=== PATIENT | female | born 1995 | race African-American/Black ===

== ENCOUNTER 2020-04-18 08:00 | Outpatient (CLI) | payer MEDICAID | END 2020-04-18 23:59 | disposition home or self-care (01) | LOC: LAB.R 08:00 | PROVIDERS: ATTEND Obstetrics & Gynecology | DX: O26.879 Cervical shortening, unspecified trimester (principal) | CPT/HCPCS: 82731 ==

== ENCOUNTER 2020-04-18 15:32 | Outpatient (CLI) | payer MEDICAID ==
[2020-04-18 15:49] VITALS: BP 121/67
[2020-04-18 17:21] LABS: HCT - HEMATOCRIT 27.8 % (37.0-47.0); HGB - HEMOGLOBIN 9.1 g/dL (12.0-16.0); MEAN CORPUSCULAR HEMOGLOBIN 27.7 pg (27.0-31.0); MEAN CORPUSCULAR HGB CONC 32.7 g/dL (32.0-36.0); MEAN CORPUSCULAR VOLUME 84.5 fL (81.0-99.0); MEAN PLATELET VOLUME 10.5 fL (7.9-10.8); RED BLOOD COUNT 3.29 10^6/uL (4.20-5.40); WHITE BLOOD COUNT 11.5 x10^3/uL (4.8-10.8)
[2020-04-18 17:23] LABS: BILIRUBIN,URINE NEGATIVE (NEGATIVE); GLUCOSE, URINE (UA) NEGATIVE (NEGATIVE); KETONES,URINE (UA) 40 mg/dL (NEGATIVE); LEUKOCYTE ESTERASE, URINE NEGATIVE (NEGATIVE); NITRITE,URINE NEGATIVE (NEGATIVE); OCCULT BLOOD,URINE NEGATIVE (NEGATIVE); PROTEIN,URINE NEGATIVE (NEGATIVE); UROBILINOGEN,URINE 0.2 (NORMAL) E.U./dL (NORMAL)
[2020-04-18 17:34] LABS: CLARITY,URINE CLEAR (CLEAR)
[2020-04-18] MEDS ORDERED: TETANUS/DIPHTHERIA/PERTUSSIS 0.5 ML SYRINGE IM ONE (17:40)
--- NOTE | 2020-04-18 18:09 | PROVIDER PROGRESS NOTE ---
- HPI Current : Current [facility] 06/01/20 Gestation 33 Weeks and 5 Days 2 Para 1 Vital Signs Temperature 99.0 F 04/18/20 15:47 Heart Rate 90 04/18/20 15:47 Respiratory Rate 18 04/18/20 15:47 Blood Pressure 121/67 04/18/20 15:47 O2 Saturation 100 04/18/20 15:47 Temperature 99.0 F 04/18/20 15:47 Heart Rate 90 04/18/20 15:47 Respiratory Rate 18 04/18/20 15:47 Blood Pressure 121/67 04/18/20 15:47 O2 Saturation 100 04/18/20 15:47 - Exam CC: sent from clinic due to short cervix on SVE HPI: [place]oved [place] and had a transfer of care visit today. Has felt pressure vaginally for >1mo and this has subtly increased with time as the baby has grown. No sudden increases in the sensation of pressure. No contractions, no VB, no LOF. Good FM. PMH: sickle cell trait (FOB is negative), genital HSV, hx uterine prolapse after last delivery improved with time (not a uterine inversion). PSH: neg SH: no t/e/d. SAHM. Allergies: NKDA Meds: PNV FH: noncontributory OB: : Uncomplicated , at 39w3d, 6#10oz. Different FOB who was 6'0" tall. G2: current, initial care in [place] transferred here with [employer] duty [employer] partner. --NOB labs not yet done due to cost --Normal genetic screen reported by pt but not available in records --s/p flu vax but not Tdap --Normal anatomy scan (face not initially cleared but was cleared on follow up US), normal fluid, post placenta --Cervical length 3.0cm at 20w and 2.5cm at 24w --Dating is an issue: LMP totally unknown to patient (per her report to me) although parts of [place] records document "certain" LMP and others document unknown. US 7w5d CRL on 10/27/19 --> OMA 06/09/2020. That US appears to have been done by a nurse practitioner. US 13w4d on 11/29/19 --> 06/01/2020. OMA was changed to 06/01 at that ultrasound. That US read by radiologist. US 20w1d and 20w4d both listed on US report on 01/17/20 --> 06/01/20 or 06/04/20 US 24w1d on 02/14/20 --> 06/04/20 O: AVSS SVE in clinic closed/1cm long/0 station Category 1 NST Dendron q3min 1h: 158 Hct 27.8, plts 269, Fe <5 UA normal, rub immune, blood A+ US here: Growth 12% using 7wUS dating 06/09. CL 2.0cm, LIZZY 13.6, S/D: mid 3.2, incidental BPP 12/22 A/P: 24yo likely at 33w5d by 13w US c/w 20 and 24w US--done by radiologist. This is 8d discordant from a 7w US but that was done by a nurse practitioner. LMP unknown. Normally we would use the earliest US to date but with the concordance of the 3 other ultrasounds and with the difference in expertise of the practitioners, Dr. Fabian and I have chosen to re-date. Final OMA per us is 06/01/19. Based on this, her EFW is much less than the 12%ile so we will dx her with IUGR today. Placenta is grade 2 which is c/w the IUGR diagnosis. NST and fluid are normal, incidental BPP 10/10. Will start biweekly surveillance. Borderline cervical length. CL was 2.5 at 24w and is 2.0cm today. FFN neg. Robbi q3min on the monitor but is not feeling these and she is very thin. Checked due to a sensation of vag pressure that has been chronic for more than 1 month without recent flare in symptoms. Iron deficiency anemic with Hct 27 and Fe <5. Pt with sickle cell trait as well. IV iron 1 dose here now due to severity. po Fe at home and recheck in 2w. Vax: due for Tdap given today. s/p flu vax at outside facility HSV history: valcyclovir prophylaxis start today due to borderline cervical length. Elevated 1h GTT 158: 3h GTT ordered - Procedures NST Procedure: NST Procedure Start Date 04/18/20 Start Time 15:49 Stop Time 16:15 Vibroacoustic Stimulation Used No Patient States Movement Yes
[2020-04-18 18:27] LABS: % IRON SATURATION 5 % (20-50); IRON 33 ug/dL (28-170); TOTAL IRON BINDING CAPACITY 605 ug/dL (250-450); TRANSFERRIN 432 mg/dL (192-382)
[2020-04-18] MEDS ORDERED: FERRIC GLUCONATE 125 MG in SODIUM CHLORIDE 0.9% 100ML 100 ML IV ONE (18:49)
--- NOTE | 2020-04-18 19:03 | Ultrasound Report ---
PROCEDURE: OB F/U or Repeat INDICATIONS: As required by radiologist OUTSIDE/PRIOR DATING DATA: Last menstrual period (LMP): Unknown. LMP-based estimated date of delivery (OMA): Unknown. First dating scan (date and location): 10/27/2019. Estimated date of delivery (OMA) from first dating scan: 06/09/2020. TECHNIQUE: Real-time scanning was performed of the fetus, with image documentation and biometric measurements. Endovaginal scanning: Performed COMPARISON: None. FINDINGS: General: A single living intrauterine gestation is present. Presentation: Vertex Placenta: Placental position is posterior fundal, without previa. Amniotic fluid index: 13.6 cm, 42nd percentile for gestational age. heart rate: 163 beats per minute. Maternal cervical canal: 2.0 cm long; normal length is 2.5 cm or more. biometrics: Biparietal diameter: 7.6 cm, 30 weeks 5 days Head circumference: 28.9 cm, 31 weeks 5 days Abdominal circumference: 27.6 cm, 31 weeks 4 days Femur length: 6 cm, 31 weeks 1 day Estimated gestational age from initial scan: 32 weeks 4 days. Composite gestational age from present scan: 31 weeks 2 days Estimated weight and percentile: 1763 g, 12th percentile Measurement variability in biometric dating: +/- 10 days from 12-20 weeks gestation, +/- 2 weeks from 20-30 weeks gestation, +/- 3 weeks at 30 weeks gestation or more. Umbilical cord Doppler: Systolic/diastolic ratio within normal limits. Other: Not applicable. IMPRESSION: 1. Single live intrauterine with size consistent with dates. 2. Cervix measures 2 cm in length on transvaginal imaging. No definite following is seen at the inte rnal cervical os. 3. Normal umbilical cord Doppler interrogation. Findings were conveyed to the referring provider, Dr. Jones, by the feedlot manager on 04/18/2020 at 6 :25 PM [facility]. Reviewed by: Riley Vega MD on 04/18/2020 6:02 PM [facility] Approved by: Riley Vega MD on 04/18/2020 6:02 PM [facility] Station ID: [id number]
--- NOTE | 2020-04-18 19:06 | Ultrasound Report ---
PROCEDURE: OB Transvaginal INDICATIONS: As required by radiologist OUTSIDE/PRIOR DATING DATA: Last menstrual period (LMP): Unknown. LMP-based estimated date of delivery (OMA): Unknown. First dating scan (date and location): 10/27/2019. Estimated date of delivery (OMA) from first dating scan: 06/09/2020. TECHNIQUE: Real-time scanning was performed of the fetus, with image documentation and biometric measurements. Endovaginal scanning: Performed. Images are present under the OB ultrasound exam performed at the [facility] time (accession [id number] ) COMPARISON: None. FINDINGS: General: A single living intrauterine gestation is present. Presentation: Vertex Placenta: Placental position is posterior fundal, without previa. Amniotic fluid index: 13.6 cm, 42nd percentile for gestational age. heart rate: 163 beats per minute. Maternal cervical canal: 2.0 cm long; normal length is 2.5 cm or more. biometrics: Biparietal diameter: 7.6 cm, 30 weeks 5 days Head circumference: 28.9 cm, 31 weeks 5 days Abdominal circumference: 27.6 cm, 31 weeks 4 days Femur length: 6 cm, 31 weeks 1 day Estimated gestational age from initial scan: 32 weeks 4 days. Composite gestational age from present scan: 31 weeks 2 days Estimated weight and percentile: 1763 g, 12th percentile Measurement variability in biometric dating: +/- 10 days from 12-20 weeks gestation, +/- 2 weeks from 20-30 weeks gestation, +/- 3 weeks at 30 weeks gestation or more. Umbilical cord Doppler: Systolic/diastolic ratio within normal limits. Other: Not applicable. IMPRESSION: 1. Single live intrauterine with size consistent with dates. 2. Cervix measures 2 cm in length on transvaginal imaging. No definite following is seen at the inte rnal cervical os. 3. Normal umbilical cord Doppler interrogation. Findings were conveyed to the referring provider, Dr. Jones, by the tow boat captain on 04/18/2020 at 6 :25 PM [facility] Reviewed by: Riley Vega MD on 04/18/2020 6:04 PM [facility] Approved by: Riley Vega MD on 04/18/2020 6:04 PM [facility] Station ID: [id number]
[2020-04-18 20:21] LABS: CHLAMYDIA TRACHOMATIS DNA NEGATIVE (NEGATIVE); NEISSERIA GONORRHOEAE DNA NEGATIVE (NEGATIVE); TRICHOMONAS VAGINALIS DNA NEGATIVE (NEGATIVE)
[2020-04-19 12:23] LABS: HEPATITIS B SURFACE ANTIGEN NON-REACTIVE (NON-REACTIVE); HEPATITIS C ANTIBODY NON-REACTIVE (NON-REACTIVE)
[2020-04-19 12:51] LABS: HIV AG/AB 4TH GEN NON-REACTIVE (NON-REACTIVE)
== END 2020-04-18 21:00 | disposition home or self-care (01) ==
LOC: WFO 15:32 → FBP 15:34 → WFO 21:00
PROVIDERS: ATTEND Obstetrics & Gynecology
DX: O36.5930 Maternal care for other known or suspected poor fetal growth, third trimester, not applicable or unspecified (principal); O26.873 Cervical shortening, third trimester; O99.013 Anemia complicating pregnancy, third trimester; D50.9 Iron deficiency anemia, unspecified; O98.513 Other viral diseases complicating pregnancy, third trimester; B00.9 Herpesviral infection, unspecified; O99.891 Other specified diseases and conditions complicating pregnancy; D57.3 Sickle-cell trait; Z3A.33 33 weeks gestation of pregnancy; O09.893 Supervision of other high risk pregnancies, third trimester
CPT/HCPCS: 76816; 76817; 81003; 82728; 82731; 82950; 83540; 84466; 85027; 86592; 86762; 86787; 86803; 86850; 86900; 86901; 87081; 87340; 87389; 87491; 87591; 87661; 90715; 96365; 96372; 99214; J2916; 81001; 81599; 87086; 87797

== ENCOUNTER 2020-04-20 18:02 | Outpatient (CLI) | payer MEDICAID ==
--- NOTE | 2020-04-21 13:17 | Ultrasound Report ---
PROCEDURE: OB Detailed Eval INDICATIONS: SUPERVISION OF HIGH RISK OUTSIDE/PRIOR DATING DATA: Last menstrual period (LMP): Unknown. LMP-based estimated date of delivery (OMA): Unknown. First dating scan (date and location): 10/27/2019 Estimated date of delivery (OMA) from first dating scan: 06/09/2020 TECHNIQUE: Real-time scanning was performed of the fetus, with image documentation and biometric measurements. Endovaginal scanning: Not done COMPARISON: 04/18/2020. FINDINGS: General: A single live intrauterine gestation is present. Presentation: Vertex Placenta: Placental position is posterior/fundal, without previa. Amniotic fluid index: 11.4 cm, 23rd percentile for gestational age. heart rate: 139 beats per minute. Maternal cervical canal: 2.2 cm long; normal length is 2.5 cm or more. biometrics: Biparietal diameter: 7.8 cm equals 31 weeks 4 days Head circumference: 29 cm equals 32 weeks 0 days Abdominal circumference: 27.1 cm equals 31 weeks 2 days Femur length: 6 cm equals 31 weeks 2 days Estimated gestational age from initial scan: 32 weeks 6 days Composite gestational age from present scan: 31 weeks 4 days Estimated weight and percentile: 1752 g, less than 2nd percentile Measurement variability in biometric dating: +/- 10 days from 12-20 weeks gestation, +/- 2 weeks from 20-30 weeks gestation, +/- 3 weeks at 30 weeks gestation or later. Anatomic survey: Neuro: Not imaged Face: Negative facial profile is not well seen. However, no abnormality can be seen. The nasal bone i s unremarkable. Spine: The cervical spine is not well seen, secondary to positioning. No spinal abnormality is identified on this study. Heart: 4-chambered heart is present, with normal ventricular outflow tracts. Diaphragm: Diaphragm is intact. Stomach: Left-sided stomach is present. Kidneys: No hydronephrosis. Normal is less than 5 mm in 2nd trimester, less than 7 mm in 3rd trimester. Cord: 3 vessel cord has orthotopic insertion. Bladder: Normal in size. Extremities: All 4 extremities are visualized. The hands are not well seen. Cord Doppler measurements are: Placenta: 4.1, 3.8 Mid cord: 3.2, 3.3 Cord insertion: 3.8, 3.6 IMPRESSION: Shortened cervix again seen, measuring 2.2 cm. Small size, less than 2nd percentile. The neurological structures, facial profile, cervical cord, and hands are not well seen. Reviewed by: Arvind Lutz MD on 04/21/2020 12:[address] [facility] Approved by: Arvind Lutz MD on 04/21/2020 12:[address] [facility] Station ID: [id number]
== END 2020-04-20 18:03 | disposition home or self-care (01) ==
LOC: DI 18:02
PROVIDERS: ATTEND Obstetrics & Gynecology
DX: O09.893 Supervision of other high risk pregnancies, third trimester (principal); O26.873 Cervical shortening, third trimester; O36.5930 Maternal care for other known or suspected poor fetal growth, third trimester, not applicable or unspecified; Z3A.00 Weeks of gestation of pregnancy not specified

== ENCOUNTER 2020-04-23 10:01 | Outpatient (CLI) | payer MEDICAID ==
--- NOTE | 2020-04-23 14:45 | PROCEDURE REPORT ---
- HPI Diagnosis/Indication for NST: Intrauterine growth restriction - Results and Plan Findings/Impression: Baseline 140 BPM Variability moderate Accelerations present Decelerations absent [place] irritable Assessment: IUGR; category 1 NST Plan: continue outpatient surveillance
--- NOTE | 2020-04-23 15:23 | Ultrasound Report ---
PROCEDURE: OB Biophysical Profile INDICATIONS: IUGR OUTSIDE/PRIOR DATING DATA: Last menstrual period (LMP): No. LMP-based estimated date of delivery (OMA): Unknown. First dating scan (date and location): [place] Estimated date of delivery (OMA) from first dating scan: 06/01/2020. TECHNIQUE: Real-time scanning was performed of the fetus, with image documentation and biometric mayra surements. Biophysical profile was also obtained. Endovaginal scanning: Not performed COMPARISON: 04/20/2020 and 04/18/2020. FINDINGS: General: A single living intrauterine gestation is present. Presentation: Vertex. Fetus is low within the uterus. Placenta: Placental position is posterior fundal, without previa. Amniotic fluid index: 11.2 cm, normal for gestational age. 21.6%. Largest pocket measures 3.3 cm. heart rate: 144 beats per minute. Maternal cervical canal: Cervical canal is very short in length and is closed, normal length is 2.5 c m or more. Estimated gestational age from initial scan: 34 weeks, 3 days. Biophysical profile: Tone: 2 points. Movement: 2 points. Respiration: 2 points. Largest pocket of fluid: 2 points. Umbilical artery Doppler: Placenta: 2.3, 2.6 Mid cord: 3.8, 4.0 Cord insertion: 3.8, 4.0. IMPRESSION: 1. Very short cervical canal which is not well seen on the current study and appears to be closed. 2. Normal amount of amniotic fluid. Largest pocket measures 3.3 cm. 3. Single live intrauterine with fetus in vertex presentation. Fetus is low within the uter us. 4. heart rate is 144 bpm. 5. biophysical profile score is 8 out of 8. 6. Normal umbilical cord artery SD ratio. Reviewed by: Syd Swartz MD on 04/23/2020 2:22 PM [facility] Approved by: Syd Swartz MD on 04/23/2020 2:22 PM [facility] Station ID: [id number]
== END 2020-04-23 10:02 | disposition home or self-care (01) ==
LOC: DI 10:01
PROVIDERS: ATTEND Obstetrics & Gynecology
DX: O99.810 Abnormal glucose complicating pregnancy (principal); O36.5930 Maternal care for other known or suspected poor fetal growth, third trimester, not applicable or unspecified; Z3A.34 34 weeks gestation of pregnancy
CPT/HCPCS: 36415; 82951; 82952

== ENCOUNTER 2020-04-23 12:53 | Outpatient (CLI) | payer MEDICAID ==
[2020-04-23 13:12] VITALS: BP 112/67
--- NOTE | 2020-04-30 07:28 | PROCEDURE REPORT ---
- HPI Current [facility] 06/01/20 Gestation 34 Weeks and 3 Days 2 Para 1 Vital Signs Temperature 98.8 F 04/23/20 12:58 Heart Rate 89 04/23/20 12:58 Respiratory Rate 18 04/23/20 12:58 Blood Pressure 112/67 04/23/20 12:58 Temperature 98.8 F 04/23/20 12:58 Heart Rate 89 04/23/20 12:58 Respiratory Rate 18 04/23/20 12:58 Blood Pressure 112/67 04/23/20 12:58 O2 Saturation - NST Procedure NST Procedure Start Date 04/23/20 Start Time 13:04 Stop Time 13:45 Vibroacoustic Stimulation Used No Patient States Movement Yes - Results and Plan Findings/Impression: atient Name: JAVIER SANDOVAL Date of : [birth year] Patient Status: Clinical Attending Provider: Alyssa Jones Account Number: Date: 04/23/20 14:43 Initialization Date: 04/23/20 14:43 - HPI Diagnosis/Indication for NST: Intrauterine growth restriction - Results and Plan Findings/Impression: Baseline 140 BPM Variability moderate Accelerations present Decelerations absent [place] irritable Assessment: IUGR; category 1 NST Plan: continue outpatient surveillance
== END 2020-04-23 13:50 | disposition home or self-care (01) ==
LOC: WFO 12:53 → FBP 12:54 → WFO 13:50
PROVIDERS: ATTEND Obstetrics & Gynecology
DX: O36.5930 Maternal care for other known or suspected poor fetal growth, third trimester, not applicable or unspecified (principal); O99.810 Abnormal glucose complicating pregnancy; Z3A.34 34 weeks gestation of pregnancy
CPT/HCPCS: 36415; 59025; 82951; 82952; 99212

== ENCOUNTER 2020-04-26 10:30 | Outpatient (CLI) | payer MEDICAID ==
[2020-04-26 11:00] VITALS: BP 105/58
--- NOTE | 2020-04-26 19:35 | PROCEDURE REPORT ---
- HPI Diagnosis/Indication for NST: Intrauterine growth restriction Current EDU 06/01/20 Gestation 34 Weeks and 6 Days 2 Para 1 Vital Signs Temperature 97.8 F 04/26/20 10:59 Heart Rate 87 04/26/20 10:59 Respiratory Rate 16 04/26/20 10:59 Blood Pressure 105/58 L 04/26/20 10:59 Temperature 97.8 F 04/26/20 10:59 Heart Rate 87 04/26/20 10:59 Respiratory Rate 16 04/26/20 10:59 Blood Pressure 105/58 L 04/26/20 10:59 O2 Saturation - NST Procedure NST Procedure Start Date 04/26/20 Start Time 10:43 Stop Time 13:45 Vibroacoustic Stimulation Used No Patient States Movement Yes - Results and Plan Findings/Impression: Baseline 135bpm, mod LTV, accels present, decels absent, toco neg A/P: IUGR in 3rd TM, category 1 NST, continue outpatient surveillance
== END 2020-04-26 11:10 | disposition home or self-care (01) ==
LOC: WFO 10:30 → FBP 10:34 → WFO 11:10
PROVIDERS: ATTEND Obstetrics & Gynecology
DX: O36.5930 Maternal care for other known or suspected poor fetal growth, third trimester, not applicable or unspecified (principal); Z3A.34 34 weeks gestation of pregnancy
CPT/HCPCS: 59025

== ENCOUNTER 2020-04-30 13:43 | Outpatient (CLI) | payer MEDICAID ==
--- NOTE | 2020-04-30 17:12 | Ultrasound Report ---
PROCEDURE: OB Biophysical Profile INDICATIONS: IUGR OUTSIDE/PRIOR DATING DATA: Last menstrual period (LMP): Unknown. LMP-based estimated date of delivery (OMA): Not applicable. First dating scan (date and location): . Estimated date of delivery (OMA) from first dating scan: 06/01/2020. TECHNIQUE: Real-time scanning was performed of the fetus, with image documentation and biometric mayra surements. Biophysical profile was also obtained. Endovaginal scanning: Not performed COMPARISON: 04/23/2020 FINDINGS: General: A single living intrauterine gestation is present. Estimated gestational age is approximat myrtle 35 weeks and 3 days. Presentation: Vertex Placenta: Placental position is fundal, without previa. Amniotic fluid index: 12.3 cm, 33rd percentile for gestational age. Largest vertical pocket measure d 5.1 cm. heart rate: 143 beats per minute. Maternal cervical canal: 2.2 cm long; normal length is 2.5 cm or more. Biophysical profile: Tone: 2 points. Movement: 2 points. Respiration: 2 points. Largest pocket of fluid: 2 points. Umbilical artery Doppler: S/D ratio measured 3.3 at the cord insertion, 3.6 at the mid uterine arter y, and 2.8 at the placental insertion. Normal cord Doppler waveforms. IMPRESSION: Single living intrauterine gestation with estimated gestational age of approximately 35 weeks and 3 d ays. Biophysical profile score of 8 out of 8. Largest vertical fluid pocket measured 5.1 cm. Normal S/D ratios and umbilical artery Doppler waveforms Redemonstration of shortened maternal cervix measuring 2.2 cm in length Reviewed by: Hany Mcginnis MD on 04/30/2020 5:11 PM PST Approved by: Hany Mcginnis MD on 04/30/2020 5:11 PM PST Station ID: [id number]
== END 2020-04-30 13:44 | disposition home or self-care (01) ==
LOC: DI 13:43
PROVIDERS: ATTEND Obstetrics & Gynecology
DX: O36.5990 Maternal care for other known or suspected poor fetal growth, unspecified trimester, not applicable or unspecified (principal); Z3A.35 35 weeks gestation of pregnancy

== ENCOUNTER 2020-04-30 14:44 | Outpatient (CLI) | payer MEDICAID ==
[2020-04-30 16:42] VITALS: BP 115/58
--- NOTE | 2020-05-01 09:21 | PROCEDURE REPORT ---
- HPI Diagnosis/Indication for NST: Intrauterine growth restriction Current EDU 06/01/20 Gestation 35 Weeks and 3 Days 2 Para 1 Vital Signs Temperature 98.4 F 04/30/20 15:30 Heart Rate 87 04/30/20 15:30 Respiratory Rate 17 04/30/20 15:30 Blood Pressure 115/58 L 04/30/20 15:30 Temperature 98.4 F 04/30/20 15:30 Heart Rate 87 04/30/20 15:30 Respiratory Rate 17 04/30/20 15:30 Blood Pressure 115/58 L 04/30/20 15:30 O2 Saturation - NST Procedure NST Procedure Start Date 04/30/20 Start Time 14:53 Stop Time 15:23 Vibroacoustic Stimulation Used No Patient States Movement Yes Baseline 135 BPM Variability moderate Accelerations present Decelerations absent [place] irritable - Results and Plan Findings/Impression: 24 yo at 35+3 wga with affected by IUGR Cat I tracing Cont with twice weekly NST and weekly LIZZY Plan: continue outpatient surveillance DX: intrauterine growth restriction
== END 2020-04-30 15:30 | disposition home or self-care (01) ==
LOC: WFO 14:44 → FBP 14:48 → WFO 15:30
PROVIDERS: ATTEND Obstetrics & Gynecology
DX: O36.5930 Maternal care for other known or suspected poor fetal growth, third trimester, not applicable or unspecified (principal); Z3A.35 35 weeks gestation of pregnancy
CPT/HCPCS: 59025

== ENCOUNTER 2020-05-07 13:48 | Outpatient (CLI) | payer MEDICAID ==
--- NOTE | 2020-05-07 14:40 | Ultrasound Report ---
PROCEDURE: OB Biophysical Profile INDICATIONS: IUGR OUTSIDE/PRIOR DATING DATA: Last menstrual period (LMP): Unknown. LMP-based estimated date of delivery (OMA): Not applicable. First dating scan (date and location): 11/29/2019. Estimated date of delivery (OMA) from first dating scan: 06/01/2020. TECHNIQUE: Real-time scanning was performed of the fetus, with image documentation and biometric mayra surements. Biophysical profile was also obtained. Endovaginal scanning: Not performed COMPARISON: 04/20/2020. FINDINGS: General: A single living intrauterine gestation is present. Presentation: Vertex Placenta: Placental position is posterior fundal, without previa. Amniotic fluid index: 11.2 cm, 21.6 percentile for gestational age. heart rate: 144 beats per minute. Maternal cervical canal: Not well visualized secondary to positioning low within the maternal pelvis. The visualized cervix appears short and closed. Estimated gestational age from initial scan: 36 weeks and 3 days. Biophysical profile: Tone: 2 points. Movement: 2 points. Respiration: 2 points. Largest pocket of fluid: 2 points. Largest vertical pocket measured 3.3 cm. Umbilical artery Doppler: S/D ratios measured at the placenta, mid cord, and cord insertion as well as the umbilical artery Doppler waveforms appear within normal limits for gestational age. IMPRESSION: 1. Single living intrauterine gestation with estimated gestational age of approximately 36 weeks and 3 days. 2. Biophysical profile score of 8 out of 8 with largest vertical fluid pocket measuring 3.3 cm. 3. Normal S/D ratios and umbilical artery Doppler waveforms. Preliminary findings reported to the OB charge nurse by the space officer at 1430 hours. Reviewed by: Hany Mcginnis MD on 05/07/2020 2:38 PM PST Approved by: Hany Mcginnis MD on 05/07/2020 2:38 PM PST Station ID: [id number]
== END 2020-05-07 13:49 | disposition home or self-care (01) ==
LOC: DI 13:48
PROVIDERS: ATTEND Obstetrics & Gynecology
DX: O36.5930 Maternal care for other known or suspected poor fetal growth, third trimester, not applicable or unspecified (principal); Z3A.36 36 weeks gestation of pregnancy

== ENCOUNTER 2020-05-07 14:54 | Outpatient (CLI) | payer MEDICAID ==
[2020-05-07 15:17] VITALS: BP 116/67
--- NOTE | 2020-05-21 08:36 | PROCEDURE REPORT ---
- HPI Diagnosis/Indication for NST: Intrauterine growth restriction Current EDU 05/21/20 Gestation 38 Weeks and 0 Days 2 Para 1 Vital Signs Temperature 36.8 C 05/07/20 15:05 Heart Rate 87 05/07/20 15:05 Respiratory Rate 18 05/07/20 15:05 Blood Pressure 116/67 05/07/20 15:05 Temperature 36.8 C 05/07/20 15:05 Heart Rate 84 05/07/20 15:15 Respiratory Rate 18 05/07/20 15:15 Blood Pressure 116/67 05/07/20 15:15 O2 Saturation - NST Procedure NST Procedure Start Date 05/07/20 Start Time 15:10 Stop Time 15:48 Patient States Movement Yes - Results and Plan Findings/Impression: REACTIVE Plan: CONTINUE TWICE WEEKLY WITH BPP AND LIZZY
== END 2020-05-07 16:00 | disposition home or self-care (01) ==
LOC: WFO 14:54 → FBP 15:00 → WFO 16:00
PROVIDERS: ATTEND Obstetrics & Gynecology
DX: O36.5930 Maternal care for other known or suspected poor fetal growth, third trimester, not applicable or unspecified (principal); Z3A.36 36 weeks gestation of pregnancy
CPT/HCPCS: 59025; 99212

== ENCOUNTER 2020-05-09 10:29 | Outpatient (CLI) | payer MEDICAID ==
[2020-05-09 10:58] VITALS: BP 118/64
--- NOTE | 2020-05-09 14:27 | PROCEDURE REPORT ---
- HPI Diagnosis/Indication for NST: Intrauterine growth restriction Current EDU 06/01/20 Gestation 36 Weeks and 5 Days 2 Para 1 Vital Signs Temperature 98.2 F 05/09/20 10:56 Heart Rate 101 H 05/09/20 10:56 Respiratory Rate 16 05/09/20 10:56 Blood Pressure 118/64 05/09/20 10:56 O2 Saturation 100 05/09/20 10:56 Temperature 98.2 F 05/09/20 10:56 Heart Rate 101 H 05/09/20 10:56 Respiratory Rate 16 05/09/20 10:56 Blood Pressure 118/64 05/09/20 10:56 O2 Saturation 100 05/09/20 10:56 - NST Procedure NST Procedure Start Date 05/09/20 Start Time 10:41 Stop Time 11:03 Vibroacoustic Stimulation Used No Patient States Movement Yes EFM 140 mod kenisha 15x15 accels no decels TOCO: irritable - Results and Plan Findings/Impression: 24 yo at 35+6 wga with affected by IUGR Cat I tracing Cont with twice weekly NST and weekly LIZZY Plan: continue outpatient surveillance DX: intrauterine growth restriction
== END 2020-05-09 11:10 | disposition home or self-care (01) ==
LOC: WFO 10:29 → FBP 10:30 → WFO 11:10
PROVIDERS: ATTEND Obstetrics & Gynecology
DX: O36.5930 Maternal care for other known or suspected poor fetal growth, third trimester, not applicable or unspecified (principal); Z3A.35 35 weeks gestation of pregnancy
CPT/HCPCS: 59025

== ENCOUNTER 2020-05-13 14:54 | Outpatient (CLI) | payer MEDICAID ==
--- NOTE | 2020-05-13 16:21 | Ultrasound Report ---
PROCEDURE: OB Biophysical Profile INDICATIONS: IUGR OUTSIDE/PRIOR DATING DATA: Last menstrual period (LMP): Unknown. LMP-based estimated date of delivery (OMA): Unknown. First dating scan (date and location): 11/29/2019. Estimated date of delivery (OMA) from first dating scan: 06/01/2020. TECHNIQUE: Real-time scanning was performed of the fetus, with image documentation and biometric measurements. Endovaginal scanning: Not performed COMPARISON: 04/18/2020, 04/20/2020, 04/23/2020, 04/30/2020, 05/07/2020 FINDINGS: General: A single living intrauterine gestation is present. Presentation: Vertex Placenta: Placental position is posterior fundal, without previa. Amniotic fluid index: 8.4 cm , 8-9% for gestational age. heart rate: 135 beats per minute. Maternal cervical canal: Grossly normal . biometrics: Limited evaluation secondary to cranium partially secured by gestational pos ition. Biparietal diameter: 8.1 cm, 32 weeks 5 days Head circumference: 31.0 cm, 34 weeks 4 days Abdominal circumference: 30.0 cm, 34 weeks 0 days Femur length: 6.6 cm, 34 weeks 0 days Estimated gestational age from initial scan: 37 weeks 2 days. Composite gestational age from present scan: 33 weeks 6 days Estimated weight and percentile: 2312 g, 2nd-3rd percentile Measurement variability in biometric dating: +/- 10 days from 12-20 weeks gestation, +/- 2 weeks from 20-30 weeks gestation, +/- 3 weeks at 30 weeks gestation or more. Biophysical profile Tone: 2 points Movement: 2 points Respiration: 2 points Largest pocket: 2 points (3.6 cm) Normal cord Doppler SD ratios. Other: Normal appearance of the chest, stomach, kidneys and urinary bladder. IMPRESSION: Single living intrauterine fetus in vertex presentation. Biophysical profile 12/22 as above. Normal cord Doppler examination. Estimated weight, 2312 g, 2nd-3rd percentile LIZZY at the 8th-9th percentile Findings were personally telephoned to the patient's nurse (Pat) by the cyber security consultant at the time of e study on 05/13/2020 Reviewed by: Bear Boo MD on 05/13/2020 4:20 PM PST Approved by: Bear Boo MD on 05/13/2020 4:20 PM PST Station ID: [id number]
== END 2020-05-13 14:55 | disposition home or self-care (01) ==
LOC: DI 14:54
PROVIDERS: ATTEND Obstetrics & Gynecology
DX: O36.5930 Maternal care for other known or suspected poor fetal growth, third trimester, not applicable or unspecified (principal); Z3A.37 37 weeks gestation of pregnancy

== ENCOUNTER 2020-05-13 14:55 | Outpatient (CLI) | payer MEDICAID ==
--- NOTE | 2020-05-14 03:36 | Ultrasound Report ---
PROCEDURE: OB F/U or Repeat INDICATIONS: IUGR OUTSIDE/PRIOR DATING DATA: Last menstrual period (LMP): Unknown. LMP-based estimated date of delivery (OMA): Unknown. First dating scan (date and location): 11/29/2019. Estimated date of delivery (OMA) from first dating scan: 06/01/2020. TECHNIQUE: Real-time scanning was performed of the fetus, with image documentation and biometric measurements. Endovaginal scanning: Not performed COMPARISON: 04/18/2020, 04/20/2020, 04/23/2020, 04/30/2020, 05/07/2020 FINDINGS: General: A single living intrauterine gestation is present. Presentation: Vertex Placenta: Placental position is posterior fundal, without previa. Amniotic fluid index: 8.4 cm , 8-9% for gestational age. heart rate: 135 beats per minute. Maternal cervical canal: Grossly normal . biometrics: Limited evaluation secondary to cranium partially secured by gestational pos ition. Biparietal diameter: 8.1 cm, 32 weeks 5 days Head circumference: 31.0 cm, 34 weeks 4 days Abdominal circumference: 30.0 cm, 34 weeks 0 days Femur length: 6.6 cm, 34 weeks 0 days Estimated gestational age from initial scan: 37 weeks 2 days. Composite gestational age from present scan: 33 weeks 6 days Estimated weight and percentile: 2312 g, 2nd-3rd percentile Measurement variability in biometric dating: +/- 10 days from 12-20 weeks gestation, +/- 2 weeks from 20-30 weeks gestation, +/- 3 weeks at 30 weeks gestation or more. Biophysical profile Tone: 2 points Movement: 2 points Respiration: 2 points Largest pocket: 2 points (3.6 cm) Normal cord Doppler SD ratios. Other: Normal appearance of the chest, stomach, kidneys and urinary bladder. IMPRESSION: Single living intrauterine fetus in vertex presentation. Biophysical profile 12/22 as above. Normal cord Doppler examination. Estimated weight, 2312 g, 2nd-3rd percentile LIZZY at the 8th-9th percentile Findings were personally telephoned to the patient's nurse (Pat) by the furniture duster at the time of e study on 05/13/2020 Reviewed by: Bear Boo MD on 05/13/2020 4:19 PM PST Approved by: Bear Boo MD on 05/13/2020 4:19 PM PST Station ID: [id number]
== END 2020-05-13 14:56 | disposition home or self-care (01) ==
LOC: DI 14:55
PROVIDERS: ATTEND Obstetrics & Gynecology
DX: O36.5930 Maternal care for other known or suspected poor fetal growth, third trimester, not applicable or unspecified (principal); Z3A.37 37 weeks gestation of pregnancy

== ENCOUNTER 2020-05-13 15:29 | Outpatient (CLI) | payer MEDICAID ==
[2020-05-13 15:51] VITALS: BP 115/65
== END 2020-05-13 16:10 | disposition home or self-care (01) ==
LOC: WFO 15:29 → FBP 15:34 → WFO 16:10
PROVIDERS: ATTEND Obstetrics & Gynecology
DX: O36.5930 Maternal care for other known or suspected poor fetal growth, third trimester, not applicable or unspecified (principal); Z3A.37 37 weeks gestation of pregnancy
CPT/HCPCS: 59025; 99212

== ENCOUNTER 2020-05-16 10:30 | Outpatient (CLI) | payer MEDICAID ==
[2020-05-16 10:51] VITALS: BP 109/60
--- NOTE | 2020-05-21 09:08 | PROCEDURE REPORT ---
- HPI Current EDU 06/01/20 Gestation 37 Weeks and 5 Days 2 Para 1 Vital Signs Temperature 37.1 C 05/16/20 10:48 Heart Rate 91 05/16/20 10:48 Respiratory Rate 18 05/16/20 10:48 Blood Pressure 109/60 05/16/20 10:48 Temperature 37.1 C 05/16/20 10:48 Heart Rate 91 05/16/20 10:48 Respiratory Rate 18 05/16/20 10:48 Blood Pressure 109/60 05/16/20 10:48 O2 Saturation - NST Procedure NST Procedure Start Date 05/16/20 Start Time 10:43 Stop Time 11:05 Patient States Movement Yes - Results and Plan Findings/Impression: REACTIVE NST Plan: DOS 05/16/2020 INDUCE
== END 2020-05-16 11:05 | disposition home or self-care (01) ==
LOC: WFO 10:30 → FBP 10:36 → WFO 11:05
PROVIDERS: ATTEND Obstetrics & Gynecology
DX: O36.5930 Maternal care for other known or suspected poor fetal growth, third trimester, not applicable or unspecified (principal); Z3A.37 37 weeks gestation of pregnancy
CPT/HCPCS: 59025; 99212

== ENCOUNTER 2020-05-16 14:56 | Inpatient (IN) | payer MEDICAID ==
[2020-05-16] MEDS ORDERED: TRANEXAMIC ACID 1,000 MG in SODIUM CHLORIDE 0.9% 100ML 100 ML IV PRN (15:36)
[2020-05-16] MEDS ORDERED: LIDOCAINE-MPF 1% 30 ML VIAL ID PRN (15:36)
[2020-05-16] MEDS ORDERED: CARBOPROST TROMETHAMINE 250 MCG/ML AMP IM PRN (15:36)
[2020-05-16] MEDS ORDERED: ONDANSETRON 4 MG/2 ML VIAL IVP PRN ×2 (15:36→21:51)
[2020-05-16] MEDS ORDERED: OXYTOCIN/SODIUM CHLORIDE 500 ML IV PRN (15:36)
[2020-05-16] MEDS ORDERED: miSOPROStoL 200 MCG TABLET BC PRN (15:36)
[2020-05-16] MEDS ORDERED: METHYLERGONOVINE 0.2 MG/ML VIAL IM PRN (15:36)
[2020-05-16] MEDS ORDERED: OXYTOCIN 10 UNIT/ML VIAL IM PRN (15:36)
[2020-05-16] MEDS ORDERED: SODIUM CHLORIDE FLUSH 0.9% 10 ML SYRINGE IVP PRN (15:36)
[2020-05-16] MEDS ORDERED: fentaNYL 100 MCG/2 ML VIAL IVP PRN (15:36)
[2020-05-16 16:07] LABS: BASOPHILS % (AUTO) 0.2 %; EOSINOPHILS % (AUTO) 0.5 %; HCT - HEMATOCRIT 29.8 % (37.0-47.0); HGB - HEMOGLOBIN 9.8 g/dL (12.0-16.0); LYMPHOCYTES # (AUTO) 1.1 10^3/uL (1.5-3.5); LYMPHOCYTES % (AUTO) 12.4 %; MEAN CORPUSCULAR HEMOGLOBIN 28.2 pg (27.0-31.0); MEAN CORPUSCULAR HGB CONC 32.9 g/dL (32.0-36.0); MEAN CORPUSCULAR VOLUME 85.6 fL (81.0-99.0); MEAN PLATELET VOLUME 11.2 fL (7.9-10.8); MONOCYTES # (AUTO) 0.8 10^3/uL (0.0-1.0); MONOCYTES % (AUTO) 9.1 %; NEUTROPHILS # (AUTO) 6.5 10^3/uL (1.5-6.6); NEUTROPHILS % (AUTO) 75.8 %; PLT - PLATELET COUNT 238 10^3/uL (130-450); RED BLOOD COUNT 3.48 10^6/uL (4.20-5.40); RED CELL DISTRIBUTION WIDTH 15.9 % (12.0-15.0); WHITE BLOOD COUNT 8.6 x10^3/uL (4.8-10.8)
[2020-05-16] MEDS ORDERED: SODIUM CHLORIDE FLUSH 0.9% 10 ML SYRINGE IVP SCH (17:00)
--- NOTE | 2020-05-16 17:50 | PREOP HISTORY & PHYSICAL ---
DATE OF SERVICE: 05/16/2020 Physician: Pedrito Fabian MD HISTORY OF PRESENT ILLNESS: The patient is a 24-year-old G2, P1 female. She has an EDC of 1. This was documented following some difficulty with ultrasounds [place]. She is here because she is 37 weeks and 5 days. She is here because of falling amniotic fluid volume. The infa nt has IUGR in the 3rd percentile, abdominal circumference, as well as a grade 3 placenta. She was s een by [facility] and following their evaluation, it was decided that we would attempt to get her to 39 week s; however, if there should be fall off on her NSTs, BPPs, AFIs, or Doppler venous studies that induc tion would be indicated. Her last ultrasound on Wednesday showed an LIZZY of 8 and today it is 7; for thi s reason, it was decided to proceed on to delivery. She also has a placenta, which is grade 3. PAST MEDICAL HISTORY: Positive for sickle cell carrier. She also has a history of a prolapsed uteru s as well as genital HSV. PAST SURGICAL HISTORY: Negative. SOCIAL HISTORY: The patient is a former smoker. She is to an active duty member. FAMILY HISTORY: Positive for hypertension, arthritis, and breast cancer. PHYSICAL EXAMINATION GENERAL: Well-developed, well-nourished, black female. She is in no acute distress at this time. HEENT: Pupils equal, round. Extraocular muscles are intact. Mouth is clear. HEART: Regular rate and rhythm without murmurs. LUNGS: Lung haque are clear without rales or wheezes. ABDOMEN: Gravid, it measures 35 cm. heart rate is 141. PELVIC: Cervical examination in the clinic 2 cm, 80%, 0 station. She has had a reactive NST this mo rning. IMPRESSION 1. A 24-year-old 2, para 1 female at 37 weeks estimated gestational age (EGA). 2. Intrauterine growth restriction (IUGR) 3rd percentile. 3. Falling amniotic fluid index (LIZZY). 4. Reactive non-stress test (NST). 5. Herpes simplex virus (HSV). PLAN: At this particular time, we will proceed on towards delivery. Will start with Godinez for cervi paul ripening and then will administer Pitocin. The patient would like to have an epidural as necessa ry. She denies any HSV at this time. TD: 05/16/2020 17:12
--- NOTE | 2020-05-16 20:37 | PROVIDER PROGRESS NOTE ---
Labor Progress Note - Uterine Monitoring Uterine Monitoring Mode: positive: External toco Contraction Intensity: positive: Moderate Uterine Resting Tone: positive: Soft - Monitoring Monitor Mode: positive: External ultrasound Heart Rate Baseline: 130 Heart Rate Variability: positive: Moderate (6-25 bmp) Accelerations: positive: Present, 15x15 Decelerations: positive: None Strip Review: positive: Category I - Vaginal Exam Dilation (in cm): 6 Effacement (%): 90 Station: 0 - Labor Progress Note Labor Progress Note/Additional Text: amita cathiter out. excellent progress. Epidural than AROM or pit.
[2020-05-16] MEDS ORDERED: LACTATED RINGERS 500 ML IV ONE (21:02)
[2020-05-16] MEDS ORDERED: fentaNYL 100 MCG/2 ML VIAL ONE (21:11)
[2020-05-16] MEDS ORDERED: ROPIVACAINE 0.2% PF 10 ML VIAL ONE (21:11)
[2020-05-16] MEDS ORDERED: ROPIVACAINE 0.2% 200 MG/100 ML BAG EP ONE (21:11)
--- NOTE | 2020-05-16 21:44 | PROVIDER PROGRESS NOTE ---
Labor Progress Note - Monitoring Accelerations: positive: Present, 15x15 Decelerations: positive: None Strip Review: positive: Category I - Vaginal Exam Dilation (in cm): 6 Effacement (%): 80 Station: 0 Cervical Position: Midposition - Labor Progress Note Labor Progress Note/Additional Text: AROM clear.
[2020-05-16] MEDS ORDERED: NALOXONE 0.4 MG/ML VIAL IVP PRN (21:51)
[2020-05-16] MEDS ORDERED: METOCLOPRAMIDE 10 MG/2 ML VIAL IVP PRN (21:51)
[2020-05-16] MEDS ORDERED: ePHEDrine 50 MG/ML VIAL IVP PRN (21:51)
[2020-05-16] MEDS ORDERED: diphenhydrAMINE INJ 50 MG/ML VIAL IVP PRN (21:51)
[2020-05-16] MEDS ORDERED: NALBUPHINE 10 MG/ML AMP IVP PRN (21:51)
[2020-05-16] MEDS ORDERED: OXYTOCIN/SODIUM CHLORIDE 500 ML IV SCH (22:00)
--- NOTE | 2020-05-16 23:00 | PROVIDER PROGRESS NOTE ---
Labor Progress Note - Uterine Monitoring Contraction Frequency (min/apart): 3 Contraction Intensity: positive: Moderate to strong Uterine Resting Tone: positive: Soft - Monitoring Heart Rate Baseline: 130 Heart Rate Variability: positive: Moderate (6-25 bmp) Accelerations: positive: Present, 15x15 Decelerations: positive: None Strip Review: positive: Category I - Vaginal Exam Dilation (in cm): 8 Effacement (%): 90 Station: 1 Cervical Position: Anterior - Labor Progress Note Labor Progress Note/Additional Text: continue
[2020-05-17] MEDS ORDERED: HYDROCORTISONE 1% CREAM 28 GM TUBE PR PRN (00:12)
[2020-05-17] MEDS ORDERED: WITCH HAZEL/GLYCERIN 1 PAD TOP PRN (00:12)
--- NOTE | 2020-05-17 00:21 | DELIVERY NOTE ---
Delivery Note - Labor Labor: positive: Augmented by oxytocin - Delivery Method Delivery Method: positive: Spontaneous vaginal delivery - Cervical Ripening Method Cervical Ripening Method: positive: Balloon device - Presentation Presentation: positive: Vertex, DAVID - left occiput anterior - Nuchal Cord Nuchal Cord: positive: None - Anesthetic Anesthetic Type: - Amniotic Fluid Description Amniotic Fluid Description: positive: Clear - Episiotomy Type Episiotomy Type: positive: None - Laceration Laceration: positive: None - Delivery Outcome Delivery Outcome: positive: Livebirth (Apgars 9/9) - : positive: Placed in direct skin contact with mother, Bulb syringe, Stimulated, Duncan used [place] sex: positive: Female - Cord Cord: positive: 2 vessels - Placenta Placenta: positive: Intact, Spontaneous - Estimated Blood Loss Estimated Blood Loss (in cc): 200 - Post Delivery Events Post Delivery Events: positive: No post delivery events (see dictation)
[2020-05-17] MEDS ORDERED: LACTATED RINGERS 1,000 ML IV SCH (01:00)
[2020-05-17] MEDS: IBUPROFEN 600 MG TABLET PO SCH ×2 (01:27→08:01)
[2020-05-17] MEDS: ACETAMINOPHEN 325 MG TABLET PO PRN ×4 (01:28→19:18)
[2020-05-17] MEDS: oxyCODONE 5 MG TABLET PO PRN ×4 (01:31→19:19)
[2020-05-17 04:51] LABS: BASOPHILS # (AUTO) 0.1 10^3/uL (0.0-0.1); BASOPHILS % (AUTO) 0.4 %; EOSINOPHILS % (AUTO) 0.1 %; HGB - HEMOGLOBIN 8.8 g/dL (12.0-16.0); LYMPHOCYTES # (AUTO) 1.4 10^3/uL (1.5-3.5); LYMPHOCYTES % (AUTO) 8.4 %; MEAN CORPUSCULAR HEMOGLOBIN 28.3 pg (27.0-31.0); MEAN CORPUSCULAR HGB CONC 32.6 g/dL (32.0-36.0); MEAN CORPUSCULAR VOLUME 86.8 fL (81.0-99.0); MEAN PLATELET VOLUME 10.6 fL (7.9-10.8); MONOCYTES # (AUTO) 1.3 10^3/uL (0.0-1.0); MONOCYTES % (AUTO) 8.2 %; NEUTROPHILS # (AUTO) 13.1 10^3/uL (1.5-6.6); NEUTROPHILS % (AUTO) 81.6 %; PLT - PLATELET COUNT 208 10^3/uL (130-450); RED BLOOD COUNT 3.11 10^6/uL (4.20-5.40); WHITE BLOOD COUNT 16.1 x10^3/uL (4.8-10.8)
--- NOTE | 2020-05-17 06:19 | PROCEDURE REPORT ---
DATE OF SERVICE: 05/16/2020 Physician: Pedrito Fabian MD The patient was induced because of her low amniotic fluid, IUGR, as well as calcified placenta. She came to Labor and Delivery, at which time her cervix was felt to be about 3 cm. A Godinez bulb was shemar richar and 60 mL of fluid was placed in the internal bulb. Gentle traction was placed about 8 o'clock, at which time the bulb came out and she was noted to be 5 cm, 80%, and 0 station. The patient had re al concerns about labor pains when epidural was placed. Following this, the membranes were artificia lly ruptured and the fluid was noted to be clear. She progressed to complete at 2340. The delivery was set up and she started pushing at 2344. Following a 5-minute second stage, a live female infant weighing 5 pounds 10 ounces with Apgars 9 and 9, was delivered over an intact perineum. The infant w as warmed, given to the mother, and the cord was allowed to stop pulsating before it was clamped and divided. Pitocin was used and the placenta spontaneously delivered at 0001. It was inspected and no amy to be intact. It is being sent to Pathology because of the IUGR as well as the calcifications. Both mother and infant tolerated delivery well. TD: 05/17/2020 00:22
[2020-05-17] MEDS: DOCUSATE SODIUM 100 MG CAPSULE PO SCH (08:01)
[2020-05-17] MEDS ORDERED: IBUPROFEN 800 MG TABLET PO PRN ×2 (11:35→18:58)
--- NOTE | 2020-05-17 11:38 | PROVIDER PROGRESS NOTE ---
Subjective - Prog Note Date Prog Note Date: 05/17/20 Prog Note Time: 11:36 - Subjective Pt reports feeling: Improved (Pain 5/10. taking motrin 600, tylenol 350 and oxycodone 5 mg. breast feeding) Objective - Vital Signs/Intake & Output Reviewed Vital Signs: Yes Vital Signs: Vital Signs x48h Temp Pulse Resp BP Pulse Ox 05/17/20 08:25 36.9 C 78 19 106/57 L 100 Intake & Output: Intake & Output 05/14/20 05/15/20 05/16/20 05/17/20 23:59 23:59 23:59 23:59 Intake Total 2000 Output Total 450 Balance 1550 - Objective General Appearance: positive: No acute distress, Alert Respiratory: positive: Chest non-tender, No respiratory distress Cardiovascular: positive: Regular rate & rhythm, No murmur, No gallop Abdomen: positive: Non-tender, Mass (U-3) Back: negative: CVA tenderness (R), CVA tenderness (L) Extremities: negative: Calf tenderness, Cooper's sign/cords - Lab Results Fish Bones: 05/17/20 04:46 Other Labs: Lab Results x24hrs 05/17/20 05/16/20 05/16/20 Range/Units 04:46 16:43 15:20 WBC 16.1 H 8.6 (4.8-10.8) x10^3/uL RBC 3.11 L 3.48 L (4.20-5.40) 10^6/uL Hgb 8.8 L 9.8 L (12.0-16.0) g/dL Hct 27.0 L 29.8 L (37.0-47.0) % MCV 86.8 85.6 (81.0-99.0) fL MCH 28.3 28.2 (27.0-31.0) pg MCHC 32.6 32.9 (32.0-36.0) g/dL RDW 16.0 H 15.9 H (12.0-15.0) % Plt Count 208 238 (130-450) 10^3/uL MPV 10.6 11.2 H (7.9-10.8) fL Neut # (Auto) 13.1 H 6.5 (1.5-6.6) 10^3/uL Lymph # (Auto) 1.4 L 1.1 L (1.5-3.5) 10^3/uL Jack # (Auto) 1.3 H 0.8 (0.0-1.0) 10^3/uL Eos # (Auto) 0.0 0.0 (0.0-0.7) 10^3/uL Baso # (Auto) 0.1 0.0 (0.0-0.1) 10^3/uL Absolute Nucleated RBC 0.00 0.00 x10^3/uL Nucleated RBC % 0.0 0.0 /100WBC Blood Type A POSITIVE Antibody Screen NEGATIVE Assessment/Plan - Problem List (1) (spontaneous vaginal delivery) Impression: difficulty with pain control. increased motrin and tylenol dosing
[2020-05-18 08:47] VITALS: BP 120/75
[2020-05-18] MEDS: ACETAMINOPHEN 325 MG TABLET PO PRN ×2 (10:45→15:29)
[2020-05-18] MEDS: oxyCODONE 5 MG TABLET PO PRN ×2 (10:45→15:29)
[2020-05-18] MEDS: DOCUSATE SODIUM 100 MG CAPSULE PO SCH (12:06)
--- NOTE | 2020-05-18 12:38 | DISCHARGE SUMMARY ---
Physician: Pedrito Fabian MD DATE OF ADMISSION: 05/16/2020 DATE OF DISCHARGE: 05/18/2020 ADMITTING DIAGNOSES 1. A 24-year-old G2, P1. 2. 37 weeks 5 days. 3. Intrauterine growth restriction at third percentile. 4. Oligohydramnios. 5. History of herpes simplex virus. 6. Anemia. DISCHARGE DIAGNOSES 1. A 24-year-old G2, P1. 2. 37 weeks 5 days. 3. Intrauterine growth restriction at third percentile. 4. Oligohydramnios. 5. History of herpes simplex virus. PROCEDURES 1. Cook catheter cervical ripening. 2. Epidural. 3. Spontaneous vaginal delivery. PRESENTING HISTORY: The patient is a 24-year-old G2, P1 female who was a late transfer in from [place], [place], with the [place]. She was sent to the [facility], who noted the to have an of asymmetric IUGR with an abdomen at the third percentile. Following consultation with them, it decided to proceed on with twice-weekly NSTs as well as BPPs, AFIs and umbilical artery velocimetry. She was noted on Wednesday to have an LIZZY of 8. Repeat ultrasound in the clinic showed the amniotic fluid volume, which had fallen to 7. At this point, it was felt that induction of labor would be indicated. She had a documented live female infant, her ethnic background was and, for these reasons, it was felt that doing an induction would be judicious. LABORATORIES: CBC on admission showed a hemoglobin of 9.8, white count was 8.6, platelets were 238. her white count was noted to be 16.1, hemoglobin was found to 8.8, platelet count was 208. HOSPITAL COURSE: The patient was admitted. Cook catheter was placed at 8 o'clock, at which time it came out spontaneously. She was noted to be 5 cm, 80%, and 0 station. The membranes were artificially ruptured. Amniotic fluid was noted to be clear. She reached complete at 11:40 and following a 9-minute second stage, delivered a live female infant weighing 5 pounds 10 ounces, Apgars 9 and 9 over an intact perineum. Pitocin was utilized, and the placenta followed soon thereafter. It was inspected and noted to be intact. Because of the IUGR, it was sent for pathology evaluation. Her course has been significant in that she has had some difficulty with pain control; however, at this point, she feels she is doing quite well. Her pain is currently zero at rest and 5 with cramping. She is being discharged to home with instructions to continue taking her vitamins. She is given oxycodone 5 mg #5. She is also to take Motrin as well as Tylenol. We have discussed the issues of stool softener and constipation. We will be adding iron to her medications because of her anemia. TD: 05/18/2020 10:47 j LAN
== END 2020-05-18 16:25 | disposition home or self-care (01) | DRG 806 ==
LOC: WFO 14:56 → FBP 14:58 → WFO 15:35 → FBP 15:36 → INTOOBSV 20:30 → OBSVTOIN 20:30 → FBP 05-17 03:45
PROVIDERS: ADMIT Obstetrics & Gynecology; ATTEND Obstetrics & Gynecology
PROC: 10E0XZZ Delivery of Products of Conception, External Approach (ICD-10-PCS; principal; 2020-05-16)
PROC: 10907ZC Drainage of Amniotic Fluid, Therapeutic from Products of Conception, Via Natural or Artificial Opening (ICD-10-PCS; 2020-05-16)
PROC: 0U7C7ZZ Dilation of Cervix, Via Natural or Artificial Opening (ICD-10-PCS; 2020-05-16)
DX: O41.03X0 Oligohydramnios, third trimester, not applicable or unspecified (principal); O98.32 Other infections with a predominantly sexual mode of transmission complicating childbirth; Z37.0 Single live birth; O36.5930 Maternal care for other known or suspected poor fetal growth, third trimester, not applicable or unspecified; A60.00 Herpesviral infection of urogenital system, unspecified; O43.893 Other placental disorders, third trimester; O99.02 Anemia complicating childbirth; D57.3 Sickle-cell trait; D64.9 Anemia, unspecified; Z20.822 Contact with and (suspected) exposure to COVID-19; Z3A.37 37 weeks gestation of pregnancy; Z87.891 Personal history of nicotine dependence; Z87.59 Personal history of other complications of pregnancy, childbirth and the puerperium
CPT/HCPCS: 36415; 85025; 86850; 86900; 86901; 87635; A9270; G0378; 88307

== ENCOUNTER 2020-09-25 08:00 | Outpatient (CLI) | payer MEDICAID ==
[2020-09-25 16:33] LABS: BILIRUBIN,URINE NEGATIVE (NEGATIVE); GLUCOSE, URINE (UA) NEGATIVE (NEGATIVE); KETONES,URINE (UA) NEGATIVE (NEGATIVE); LEUKOCYTE ESTERASE, URINE SMALL (NEGATIVE); NITRITE,URINE NEGATIVE (NEGATIVE); OCCULT BLOOD,URINE NEGATIVE (NEGATIVE); PROTEIN,URINE NEGATIVE (NEGATIVE); UROBILINOGEN,URINE 0.2 (NORMAL) E.U./dL (NORMAL)
[2020-09-25 16:41] LABS: BACTERIA,URINE None Seen /HPF (None Seen); CLARITY,URINE CLEAR (CLEAR); RBC,URINE 0-5 /HPF (0-5); SQUAMOUS EPITHELIAL CELL,UR RARE Squamous (<= Few)
[2020-09-25 20:16] LABS: BACTERIAL VAGINOSIS DNA POSITIVE (NEGATIVE); CANDIDA GLABRATA DNA NEGATIVE (NEGATIVE); CANDIDA GROUP DNA NEGATIVE (NEGATIVE); CANDIDA KRUSEI DNA NEGATIVE (NEGATIVE); TRICHOMONAS VAGINALIS DNA NEGATIVE (NEGATIVE)
== END 2020-09-25 23:59 | disposition home or self-care (01) ==
LOC: LAB.WC 08:00
PROVIDERS: ATTEND Nurse Practitioner Obstetrics & Gynecology
DX: N89.8 Other specified noninflammatory disorders of vagina (principal)
CPT/HCPCS: 81001; 87086; 87661; 87801